=== PATIENT | male | born 1995 | race Caucasian/White ===

== ENCOUNTER 2021-04-03 20:33 | Emergency (ER) | payer OTHER, SELFPAY ==
[2021-04-03 20:36] VITALS: BP 150/72; PULSE 77; RESP 15; TEMP 36.7; O2SAT 99; BMI 24.4
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
[2021-04-03] MEDS: Ibuprofen 600 MG Tablet PO (23:08)
== END 2021-04-03 23:13 | disposition home or self-care (01) ==
PROVIDERS: Emergency Provider Emergency Medicine; PCP Family Medicine
DX: S29.012A Strain of muscle and tendon of back wall of thorax, initial encounter (principal); V89.2XXA Person injured in unspecified motor-vehicle accident, traffic, initial encounter
CPT/HCPCS: 71046; 72072; 99284

== ENCOUNTER 2025-08-15 13:07 | Emergency (ER) | payer OTHER, SELFPAY ==
[2025-08-15 13:08] VITALS: BP 140/87; PULSE 85; RESP 22; TEMP 36.4; O2SAT 100
--- NOTE | 2025-08-15 13:55 | RAD_ITS ---
PROCEDURE: RAD/Knee 4 or More Views
--- NOTE | 2025-08-15 15:17 | ED.VIS.LOWEX ---
HPI History of Present Illness HPI Narrative: Healthy 30-year-old male was playing basketball today planted and twisted his left knee. Complaining of pain medially. Occurred about 3+ hours ago. Chief Complaint: Lower Extremity Injury Informant: patient Occured/Mechanism Mechanism/Context: Yes injury Onset/Context/Timing Onset: Today Context: Sudden Onset Timing: Continuous Current Severity: Moderate Maximum Severity: Moderate Narrative Narrative: 30-year-old male left knee injury playing basketball about 3 hours ago. No prior history of surgery to his knee. Pain primarily medially. Prior similar symptoms: No Recent Illness/Hospitalization: No PFSH PFSH Medical History no medical history no medical history Home Medications ?Medication ?Instructions ?Recorded ?Last Taken ?Type NK 04/03/21 Unknown History Allergy/AdvReac Type Severity Reaction Status Date / Time codeine AdvReac Other Verified 08/15/25 13:07 morphine AdvReac Other Verified 08/15/25 13:07 Family History no significant family his Surgical History no surgical history Social History Smoking Status: Never smoker ROS ROS ED ROS Narrative Denies recent illness. Constitutional Constitutional ED: Denies fever(s) Eyes Eyes: Denies blurry vision ENT ENT ED: Denies ear pain Cardiovascular Cardiovascular: Denies chest pain Respiratory/Chest Respiratory/Chest: Denies cough or dyspnea Gastrointestinal Gastrointestinal: Denies abdominal pain Genitourinary Genitourinary ED: Denies dysuria or hematuria Musculoskeletal Musculoskeletal: Denies arthralgias or back pain Integumentary Denies abscess Neurologic Neurologic: Denies headache(s) Psychiatric Psychiatric: Denies anxiety, depression or suicidal ideation Endocrine Endocrinology: Denies polydipsia or polyphagia Hematologic/Lymphatic Hematologic/Lymphatic: Denies easy bleeding or easy bruising Allergic/Immunologic Allergic/Immunologic ED: Denies mouth swelling or tongue swelling EXAM Physical Exam Narrative Exam Narrative: Appearing 30-year-old male accompanied by his and baby. Vital signs are stable afebrile. He is in a hallway chair due to current volume. He is in no acute distress. H EENT exam pupils round react to light. Moist mucous membranes. Neck nontender no lymphadenopathy. Lungs clear to auscultation. Heart regular rhythm no murmur. Chest wall and ribs nontender. Abdomen soft nontender. Moving all 4 extremities. Neurovascularly intact. Specifically left hip ankle and foot nontender. Normal dorsi plantarflexion. Normal sensation. Left knee no swelling. Full flexion extension of the left knee. Both the quadriceps and infrapatellar tendons appear to be intact. ACL and PCL appear to be intact. No effusion. No significant swelling. The lateral collateral ligament appears to be intact. The medial collateral ligament appears to be intact but tender and pain with stressing consistent with a MCL sprain. Neurologically is awake alert. He is answering questions and following commands. Const Vital Signs: 08/15/25 13:08 Temperature 97.6 F L Temperature Source Temporal Pulse Rate 85 Respiratory Rate 22 H Blood Pressure 140/87 H Blood Pressure Mean 104 Pulse Ox 100 Oxygen Delivery Method Room Air MDM MDM MDM Narrative Medical decision making narrative: 30-year-old male injured his left knee playing basketball. X-ray was obtained by nursing protocol. Read as negative by myself and radiologist. Exam is consistent with a knee sprain specifically an MCL sprain. Ice. Elevate. Rest. Anti-inflammatories. Increase activity as tolerated. Follow-up with orthopedics not improving in 1 to 2 weeks. Radiography Diagnostic Testing: Clinical Impression(s) from Imaging Studies Knee X-Ray 08/15/25 13:55 IMPRESSION: As above. Reading Location: [facility] Left knee x-ray, 4 views, interpreted by myself and radiologist shows no acute abnormality. No fracture. No dislocation. No significant swelling or effusion. Discharge Plan Triage Chief Complaint: Lower Extremity Injury ED Provider: Raphael Cannon Dx/Rx/DC Orders Clinical Impression: Left knee sprain Instructions: ED Knee Sprain Ligaments Prescriptions: No Action NK Primary Care Provider: Rasta Archer Referrals: Vijay Castanon DO [Med Staff - Active Staff, Orthopedics] - 10-14 Days if not better Rasta Archer MD [Primary Care Provider, Medical] Activity Restrictions/Additional Instructions: Your x-ray looks good. No bony injury. On exam it seems like you have a sprain in the specifically a medial collateral ligament sprain. Ice. Elevate. Motrin for pain and inflammation. May alternate with Tylenol. This should progressively get better over the next 1 to 2 weeks. If not follow-up with orthopedic surgeon for further evaluation. Increase activity as tolerated. I would not do any sports till you are pain-free. Print Language: Greenlandic Disposition Disposition: Home, Self Care
[2025-08-15 15:22] VITALS: BP 140/87; PULSE 78; RESP 16; TEMP 36.4; O2SAT 100
== END 2025-08-15 15:31 | disposition home or self-care (01) ==
LOC: ED 15:24
PROVIDERS: Emergency Provider Emergency Medicine; PCP Family Medicine; Visit Provider Emergency Medicine
DX: S83.412A Sprain of medial collateral ligament of left knee, initial encounter (principal); X50.1XXA Overexertion from prolonged static or awkward postures, initial encounter; Y93.67 Activity, basketball
CPT/HCPCS: 73564; 99282